=== PATIENT | male | born 1970 | race Caucasian/White ===

== ENCOUNTER 2017-12-06 14:45 | Inpatient (IN) ==
[2017-12-06] MEDS ORDERED: Ipratropium/Albuterol Neb 3 ML IH ONE (15:17)
[2017-12-06] MEDS ORDERED: methylPREDNISolone 125 MG/2 ML VIAL IVP ONE (15:17)
[2017-12-06] MEDS ORDERED: 0.9 % Sodium Chloride 1,000 ML IVC ONE (15:28)
--- NOTE | 2017-12-06 15:29 | Emergency Department Note ---
Disposition Clinical Impression: Pulmonary nodule, Hyponatremia, COPD exacerbation Pneumonia Qualifiers: Pneumonia type: due to unspecified organism Laterality: unspecified laterality Lung location: unspecified part of lung Qualified Code(s): J18.9 - Pneumonia, unspecified organism Disposition: Admitted As Inpatient Condition: Good Referrals: Malissa An CNP [Primary Care Provider] - Forms: ED Satisfaction Letter General Adult HPI - General Chief complaint: ED Shortness of Breath/Dyspnea Stated complaint: GARDENIA Time Seen by Provider: 12/06/17 15:05 Source: patient Limitations: no limitations Nursing Notes Reviewed: Yes Vital Signs Reviewed: Yes - History of Present Illness HPI Narrative: 47-year-old male who reports a past medical history of hypertension, COPD, acid reflux. He denies any cardiac history. He reports that he is normally on 2 L nasal cannula of oxygen at home. He reports approximately 1 week of worsening cough and dyspnea. He saw his primary care practitioner proximally 3 days ago who prescribed him steroids and an antibiotic and he does not report an improvement. He denies any nausea or vomiting. He does admit to fatigue. His cough is productive with yellow sputum. It is worse with exertion. He reports having numerous flares of COPD in the past and this feels like the same. Radiation: non-radiation Pain Scale: 3 Consistency: constant Improves with: nothing Worsens with: other (Exertion) Associated symptoms: Reports: denies other symptoms Treatments Prior to Arrival: none - Related Data Home Medications Medication Instructions Recorded Confirmed Albuterol Sulfate [Ventolin Hfa] 2 puff IH Q4H PRN 12/06/17 12/06/17 Cholecalciferol (D-3) [Vitamin D] 1,000 unit PO DAILY 12/06/17 12/06/17 Lisinopril [Zestril] 40 mg PO DAILY 12/06/17 12/06/17 Loratadine [Claritin] 10 mg PO DAILY 12/06/17 12/06/17 levoFLOXacin [Levofloxacin] 750 mg PO DAILY 12/06/17 12/06/17 predniSONE [PredniSONE] 40 mg PO DAILY 12/06/17 12/06/17 Previous Rx's Medication Instructions Recorded Alprazolam [Xanax] 0.5 mg PO BID PRN #20 tablet 07/30/15 Budesonide/Formoterol 160/4.5 2 puff IH BIDR 30 Days inhaler 07/30/15 [Symbicort] Allergies Allergy/AdvReac Type Severity Reaction Status Date / Time Penicillins Allergy unsure Verified 07/28/15 17:30 venom-honey bee Allergy Difficulty Verified 07/28/15 17:30 [bee venom (honey bee)] Breathing All systems ED: reviewed and negative except as stated. Constitutional: Denies: fever ENT ED: Denies: throat pain Cardiovascular: Denies: chest pain Respiratory: Reports: cough, dyspnea, wheezes Gastrointestinal: Denies: abdominal pain, nausea, vomiting Integumentary: Denies: rash Endocrine: Reports: fatigue Past Medical History - Past Medical History Medical history: Reports: asthma, COPD, hypertension, other Surgical history: Reports: appendectomy Psychiatric history: Reports: anxiety - Social History Smoking Status: Current every day smoker Smokeless Tobacco Status: Yes (chew) Alcohol use: Reports: occasionally Drug use: Reports: none Physical Exam - General Limitations: no limitations General appearance: alert - Head Head exam: atraumatic - Eye Eye exam: Present: normal appearance, PERRL - ENT ENT exam: normal exam, normal oropharynx - Neck Neck exam: Present: normal inspection - Chest Chest inspection: Present: normal inspection - Respiratory Respiratory exam: Present: other (Significant expiratory wheezes with rhonchi throughout). Absent: respiratory distress, accessory muscle use - Cardiovascular Cardiovascular exam: Present: regular rate, normal rhythm - Abdominal Exam Abdominal exam: Present: soft, Non-Tender - Extremities Exam Extremities exam: Present: normal inspection. Absent: pedal edema - Neurological Exam Neurological exam: Present: alert, oriented X3 - Psychiatric Psychiatric exam: Present: normal affect, normal mood - Skin Skin exam: Present: warm, dry Course Course Narrative: He currently is able to talk in partial sentences without accessory muscle use. We will start with triple DuoNeb therapy and steroids and reevaluate. His SPO2 was 90% on 3 L nasal cannula. He is not in respiratory failure at this point. He does drink up to 12 beers a day which explains his hyponatremia. Will CTA to rule out PE. CTA shows pneumonia. Will admit. Vital Signs Temperature 98.6 F 12/06/17 14:50 Pulse Rate 114 12/06/17 14:50 Respiratory Rate 24 12/06/17 14:50 Blood Pressure 126/76 12/06/17 14:50 O2 Sat by Pulse Oximetry 78 12/06/17 14:50 Temperature 98.6 F 12/06/17 14:50 Pulse Rate 102 12/06/17 18:36 Respiratory Rate 18 12/06/17 18:36 Blood Pressure 110/93 12/06/17 18:36 O2 Sat by Pulse Oximetry 90 12/06/17 18:36 Oxygen Delivery Oxygen Delivery Nasal Cannula Medical Decision Making - Medical Records Medical records reviewed: Yes I reviewed the patient's medical records. - Lab Data Lab results reviewed: Yes I reviewed the patient's lab results. Result diagrams: 12/06/17 15:36 12/06/17 15:36 Lab Results 12/06/17 12/06/17 12/06/17 Range/Units 15:36 15:36 15:36 WBC 6.6 (4.3-11.1) K/mcL RBC 5.08 (4.19-5.50) M/mcL Hgb 16.3 (12.9-16.9) g/dL Hct 49.5 (37.5-50.1) % MCV 97.4 (83.0-100.0) fL MCH 32.1 (28.0-33.3) pg MCHC 32.9 (31.6-35.5) g/dL RDW 13.6 (11.5-14.5) % Plt Count 224 (140-400) K/mcL MPV 10.8 (9.4-12.4) fL Immature Gran % 0.6 (0-4) % Seg Neutrophils % 62.2 % Lymphocytes % 21.5 % Monocytes % 15.2 % Eosinophils % 0.0 % Basophils % 0.5 % Neutrophils # 4.1 (1.6-8.9) K/mcL Lymphocytes # 1.4 (0.6-4.6) K/mcL Monocytes # 1.0 (0.0-1.3) K/mcL Eosinophils # 0.0 (0.0-0.6) K/mcL Basophils # 0.0 (0.0-0.2) K/mcL Reactive Lymphocytes Present A (Not Present) Smudge Cells Present A (Not Present) Sodium 128 L (136-145) mEq/L Potassium 4.6 (3.5-5.1) mEq/L Chloride 90 L (98-107) mEq/L Carbon Dioxide 33 H (23-29) mEq/L BUN 7 (6-20) mg/dL Creatinine 0.70 (0.70-1.30) mg/dL Est GFR ( Amer) > 60 (> 60) Est GFR (Non-Af Amer) > 60 (> 60) BUN/Creatinine Ratio 10 (6-26) Glucose 118 H (70-105) mg/dL Calculated Osmolality 265 L (280-300) Calcium 9.0 (8.6-10.3) mg/dL Troponin I < 0.03 (< 0.04) ng/mL B-Natriuretic Peptide (Less than 100) pg/mL 12/06/17 Range/Units 15:36 WBC (4.3-11.1) K/mcL RBC (4.19-5.50) M/mcL Hgb (12.9-16.9) g/dL Hct (37.5-50.1) % MCV (83.0-100.0) fL MCH (28.0-33.3) pg MCHC (31.6-35.5) g/dL RDW (11.5-14.5) % Plt Count (140-400) K/mcL MPV (9.4-12.4) fL Immature Gran % (0-4) % Seg Neutrophils % % Lymphocytes % % Monocytes % % Eosinophils % % Basophils % % Neutrophils # (1.6-8.9) K/mcL Lymphocytes # (0.6-4.6) K/mcL Monocytes # (0.0-1.3) K/mcL Eosinophils # (0.0-0.6) K/mcL Basophils # (0.0-0.2) K/mcL Reactive Lymphocytes (Not Present) Smudge Cells (Not Present) Sodium (136-145) mEq/L Potassium (3.5-5.1) mEq/L Chloride (98-107) mEq/L Carbon Dioxide (23-29) mEq/L BUN (6-20) mg/dL Creatinine (0.70-1.30) mg/dL Est GFR ( Amer) (> 60) Est GFR (Non-Af Amer) (> 60) BUN/Creatinine Ratio (6-26) Glucose (70-105) mg/dL Calculated Osmolality (280-300) Calcium (8.6-10.3) mg/dL Troponin I (< 0.04) ng/mL B-Natriuretic Peptide 38 (Less than 100) pg/mL - Radiology Data Radiology results reviewed: Yes I reviewed the patient's radiology results. - EKG Data EKG #1 EKG attestation: Yes I reviewed and interpreted this EKG. EKG shows normal: sinus rhythm Rhythm: NSR [place]/QRS: normal When compared to previous EKG there are: no significant changes Interpretation: nonspecific ST-T wave changes
[2017-12-06 15:47] LABS: Basophils % 0.5 %; Hematocrit 49.5 % (37.5-50.1); Hemoglobin 16.3 g/dL (12.9-16.9); Immature Granulocytes % 0.6 % (0-4); Lymphocytes # 1.4 K/mcL (0.6-4.6); Lymphocytes % 21.5 %; Mean Corpuscular HGB Conc 32.9 g/dL (31.6-35.5); Mean Corpuscular Hemoglobin 32.1 pg (28.0-33.3); Mean Corpuscular Volume 97.4 fL (83.0-100.0); Mean Platelet Volume 10.8 fL (9.4-12.4); Monocytes % 15.2 %; Neutrophils # 4.1 K/mcL (1.6-8.9); Platelet Count 224 K/mcL (140-400); Red Blood Count 5.08 M/mcL (4.19-5.50); Red Cell Distribution Width 13.6 % (11.5-14.5); Segmented Neutrophils % 62.2 %
[2017-12-06 15:58] LABS: Carbon Dioxide 33 mEq/L (23-29); Chloride 90 mEq/L (98-107); Potassium 4.6 mEq/L (3.5-5.1); Sodium 128 mEq/L (136-145)
[2017-12-06 16:03] LABS: BUN/Creatinine Ratio 10 (6-26); Blood Urea Nitrogen 7 mg/dL (6-20); Glucose 118 mg/dL (70-105); Osmolality,Calculated 265 (280-300); eGFR For African Americans > 60 (> 60); eGFR For Non-African Americans > 60 (> 60)
[2017-12-06 17:27] LABS: Reactive Lymphocytes Present (Not Present)
[2017-12-06 17:28] LABS: Smudge Cells Present (Not Present)
[2017-12-06] MEDS ORDERED: Levofloxacin 750 MG/150 ML 750 MG/150 ML BAG IVPB ONE (17:46)
[2017-12-06] MEDS ORDERED: Albuterol 2.5 MG/3 ML NEBULIZER IH ONE (18:05)
--- NOTE | 2017-12-06 18:30 | Emergency Department Note ---
START Narrative - START START: I examined this patient and my medical decision-making was reviewed with the Resident Physician. I agree with the documented findings, disposition and treatment plan as described except to the extent set forth below. 47 year old male with HX of COPD and cass acute excerbation who is tachycardiac and hypoxic. CTA chest shows pneumonia and we will admit to medicine with IV ABX and pulmonary toilet
[2017-12-06] MEDS ORDERED: Ibuprofen 400 MG TABLET PO PRN (20:12)
[2017-12-06] MEDS ORDERED: Naloxone 0.4 MG/ML INJ IVP PRN (20:12)
[2017-12-06] MEDS ORDERED: Ondansetron ODT 4 MG TAB.RAPDIS SL PRN (20:12)
[2017-12-06] MEDS ORDERED: Acetaminophen 325 MG TABLET PO PRN (20:12)
--- NOTE | 2017-12-06 20:19 | Internal Med History&Physical ---
<Elijah Griffith - Last Filed: 12/06/17 22:07> Date of Encounter: 12/06/17 Time of Encounter: 20:00 Assessment and Plan (1) COPD exacerbation Current visit: Yes Status: Acute Duonebs, O2 titration to ~92%, po steroids. (2) Pneumonia Current visit: Yes Status: Acute CT chest shows multifocal atypical pneumonitis. Has received 3 days of outpatient Levaquin and Prednisone 40mg. Will continue Levaquin (atypical coverage). Qualifiers: Pneumonia type: due to unspecified organism Laterality: unspecified laterality Lung location: unspecified part of lung Qualified Code(s): J18.9 - Pneumonia, unspecified organism (3) Hyponatremia Current visit: Yes Status: Acute Likely hypovolemic hyponatremia secondary to volume loss, diarrhea, dehydration , sweating. Past history of hyponatremia prior admission. Asymptomatic, will monitor morning labs, regular diet/po fluid intake. (4) Nodule of left lung Current visit: No Status: Acute Stable left upper lobe lung nodule, 9mm, compared to CT scan Dec 2016. (5) Tobacco abuse Current visit: Yes Status: Acute [id number] years. Nicotine replacement therapy. (6) DVT prophylaxis Current visit: Yes Status: Acute SQ Heparin 5000U q12h. Total time: ~40minutes Internal Medicine - H&P: HPI Admitted From: Emergency Dept Plans for Post Hospital Care: Home History of present illness: Mr. Melo is a 47 year old male who presents with 1 week onset of productive cough, malaise, and dyspnea. Patient has a past medical history of COPD, on 2 liters home O2, current everyday smoker 1 [id number], hypertension, asthma. Patient reports yellowish sputum, fatigue, subjective chills and sweats without nausea or vomiting. He states he started Levaquin 750mg and Prednisone 40mg 3 days ago, with onset of mild diarrhea before starting abx. CT ordered in ED shows multifocal atypical pneumonitis, negative for pulmonary embolism, stable left upper lobe 9mm lung nodule. Past Med Surg Social Fam HX - Past Medical History Medical history: asthma, COPD, hypertension, other Psychiatric history: anxiety - Past Surgical History Surgical History: appendectomy - Social History Smoking Status: Current every day smoker Smokeless Tobacco Status: Yes (chew) Alcohol use: occasionally Drug use: none - Family History Father Adopted: No Living Status: Hx Family Respiratory Disorders: Yes (Severe COPD, metastatic lung cancer) Hx Family Cancer: Yes (lung, liver, pancreatic) Mother Adopted: No Living Status: Hx Family Respiratory Disorders: Yes (COPD, unknown cancer) Hx Family Cancer: Yes (Lung) Internal Medicine - H&P: Meds Alprazolam [Xanax] 0.5 mg PO BID PRN #20 tablet 07/30/15 [Rx] Budesonide/Formoterol 160/4.5 [Symbicort] 2 puff IH BIDR 30 Days inhaler [Rx] Albuterol Sulfate [Ventolin Hfa] 2 puff IH Q4H PRN 12/06/17 [History] Cholecalciferol (D-3) [Vitamin D] 1,000 unit PO DAILY 12/06/17 [History] Lisinopril [Zestril] 40 mg PO DAILY 12/06/17 [History] Loratadine [Claritin] 10 mg PO DAILY 12/06/17 [History] levoFLOXacin [Levofloxacin] 750 mg PO DAILY 12/06/17 [History] predniSONE [PredniSONE] 40 mg PO DAILY 12/06/17 [History] 3 Allergy/AdvReac Type Severity Reaction Status Date / Time Penicillins Allergy unsure Verified 07/28/15 17:30 venom-honey bee Allergy Difficulty Verified 07/28/15 17:30 [bee venom (honey bee)] Breathing All Systems PM: A 10-system review of systems was performed and is negative for pertinent findings except as documented above in the HPI. - Constitutional Vitals: Temp Pulse Resp BP Pulse Ox 98.6 F 102 18 110/93 90 12/06/17 14:50 12/06/17 18:36 12/06/17 18:36 12/06/17 18:36 12/06/17 18:36 General appearance: Present: A&O X 3, no acute distress - Head Head exam: Present: atraumatic - ENT ENT exam: Present: mucous membranes moist - Neck Neck exam general surgery: Present: full ROM - Respiratory Respiratory exam: Present: rhonchi, wheezes (bilateral). Absent: accessory muscle use, respiratory distress - Cardiovascular Cardiovascular exam: Present: +S1, +S2, tachycardia. Absent: irregular rhythm, +S3, +S4 - Extremities Exam Extremities exam: Present: normal capillary refill. Absent: calf tenderness, cyanotic - Psychiatric Psychiatric exam: Present: normal affect - Skin Skin exam: Absent: diaphoretic Internal Med - H&P Results - Labs CBC & Chem 7: 12/06/17 15:36 12/06/17 15:36 Labs: Short CBC 12/06/17 Range/Units 15:36 WBC 6.6 (4.3-11.1) K/mcL Hgb 16.3 (12.9-16.9) g/dL Hct 49.5 (37.5-50.1) % Plt Count 224 (140-400) K/mcL Neutrophils # 4.1 (1.6-8.9) K/mcL BMP 12/06/17 15:36 Sodium 128 L Potassium 4.6 Chloride 90 L Carbon Dioxide 33 H BUN 7 Creatinine 0.70 Glucose 118 H Calcium 9.0 Cardiac Enzymes 12/06/17 Range/Units 15:36 Troponin I < 0.03 (< 0.04) ng/mL - Impressions ITS Impressions Chest X-Ray 12/06/17 15:17 IMPRESSION: 1. Mild vascular congestion. D/ / Danny Ventura MD / Danny Ventura MD Interpreting Provider: Danny Ventura MD Chest CTA 12/06/17 16:35 IMPRESSION: 1. No evidence of acute pulmonary embolism. 2. Bilateral tree-in-bud and ground-glass opacities consistent with multifocal atypical pneumonitis, likely infectious. 3. Enlarged mediastinal and hilar lymph nodes bilaterally. These are nonspecific, may be reactive; however, underlying neoplasm is not excluded. Attention on subsequent imaging is recommended. 4. An 8 mm noncalcified left upper lobe lung nodule. Follow-up imaging and management per criteria listed below is recommended. 5. Emphysema. RECOMMENDATIONS: Fleischner Society guidelines for follow-up and management of incidentally detected pulmonary nodules: Single Solid Nodule: Nodule size equals 6-8 mm In a low-risk patient, CT at 6-12 months, then consider CT at 18-24 months. In a high-risk patient, CT at 6-12 months, then CT at 18-24 months. - Low risk patients include individuals with minimal or absent history of smoking and other known risk factors. - High risk patients include individuals with a history or smoking or known risk factors. Radiology 2017 http://pubs.rsna.org/doi/full/10.1148/radiol.3393673668 D/ / 12/06/2017 17:34:31 Jeffery Beltran MD / judith Interpreting Provider: Jeffery Beltran MD <Angle Silva - Last Filed: 12/07/17 04:09> Date of Encounter: 12/07/17 Internal Medicine - H&P: HPI History of present illness: Mr. Melo is a 47 year old male All Systems PM: A 10-system review of systems was performed and is negative for pertinent findings except as documented above in the HPI. - Constitutional Vitals: Temp Pulse Resp BP Pulse Ox 98.1 F 61 16 107/72 94 12/07/17 01:12 12/07/17 01:12 12/07/17 01:12 12/07/17 01:12 12/07/17 01:12 Internal Med - H&P Results - Labs CBC & Chem 7: 12/06/17 15:36 12/06/17 15:36 - Attending Attestation I have seen and examined this pt independently. I have discussed with Resident physician Dr Griffith regarding the management plan. Agree with the documentation.
[2017-12-06] MEDS ORDERED: Ipratropium/Albuterol Neb 3 ML IH PRN (20:38)
[2017-12-06] MEDS: *HR* Heparin 5,000 UNIT/ML VIAL SQ SCH (21:55)
[2017-12-06] MEDS: Nicotine 14 MG PATCH.TD24 TD SCH (21:56)
[2017-12-06] MEDS: ALPRAZolam 0.5 MG TABLET PO PRN (21:56)
[2017-12-06] MEDS: Lisinopril 20 MG TABLET PO SCH (21:58)
[2017-12-06] MEDS: predniSONE 20 MG TABLET PO SCH (22:47)
[2017-12-07] MEDS: *HR* Heparin 5,000 UNIT/ML VIAL SQ SCH ×2 (05:32→17:19)
[2017-12-07 06:23] LABS: BUN/Creatinine Ratio 16 (6-26); Blood Urea Nitrogen 10 mg/dL (6-20); Calcium 8.6 mg/dL (8.6-10.3); Carbon Dioxide 37 mEq/L (23-29); Chloride 95 mEq/L (98-107); Glucose 139 mg/dL (70-105); Osmolality,Calculated 273 (280-300); Potassium 4.1 mEq/L (3.5-5.1); Sodium 131 mEq/L (136-145); eGFR For African Americans > 60 (> 60); eGFR For Non-African Americans > 60 (> 60)
[2017-12-07 06:31] LABS: Basophils % 0.9 %; Hematocrit 48.4 % (37.5-50.1); Hemoglobin 15.5 g/dL (12.9-16.9); Immature Granulocytes % 1.1 % (0-4); Lymphocytes # 1.7 K/mcL (0.6-4.6); Lymphocytes % 37.7 %; Mean Corpuscular Hemoglobin 31.8 pg (28.0-33.3); Mean Corpuscular Volume 99.2 fL (83.0-100.0); Monocytes # 0.6 K/mcL (0.0-1.3); Monocytes % 13.4 %; Neutrophils # 2.1 K/mcL (1.6-8.9); Platelet Count 202 K/mcL (140-400); Red Blood Count 4.88 M/mcL (4.19-5.50); Red Cell Distribution Width 13.6 % (11.5-14.5); Segmented Neutrophils % 46.9 %
[2017-12-07 07:59] LABS: Platelet Estimate Normal (Normal)
[2017-12-07] MEDS ORDERED: levoFLOXacin 750 MG TABLET PO SCH (09:00)
[2017-12-07] MEDS: Nicotine 14 MG PATCH.TD24 TD SCH (09:29)
[2017-12-07] MEDS: Lisinopril 20 MG TABLET PO SCH (09:29)
[2017-12-07] MEDS: predniSONE 20 MG TABLET PO SCH (09:29)
[2017-12-07] MEDS ORDERED: Ipratropium/Albuterol Neb 3 ML IH SCH (10:00)
[2017-12-07] MEDS: ALPRAZolam 0.5 MG TABLET PO PRN (11:52)
[2017-12-07] MEDS ORDERED: *HR* LORazepam 0.5 MG TABLET PO PRN (15:45)
[2017-12-07] MEDS ORDERED: Ipratropium/Albuterol Neb 3 ML IH PRN (15:48)
--- NOTE | 2017-12-07 15:48 | Internal Med Progress Note ---
Date of Encounter: 12/07/17 Time of Encounter: 15:44 - Assessment and plan (1) Acute on chronic respiratory failure with hypoxia Current Visit: Yes Status: Acute Assessment and plan: He still has diffuse wheezing will start him on IV steroids switched to IV Abx will check Resp viral Panel cont Duoneb Q4hr YON pt does need to stay in the hospital more than 2 nights due to his complex medical problem. High risk to develop resp failure. Will switch him to full admission. I reviewed my colleague Dr. Silva's H & P including HPI, PMH, PSH, FH,and ROS no changes noticed (2) Nodule of left lung Current Visit: No Status: Acute Assessment and plan: counseled to quit smoking need to f/u as an out pt (3) Alcohol abuse Current Visit: No Status: Chronic Assessment and plan: counseled to quit drinking last alcohol on Wednesday monitor closely for withdraw symptoms on Ativan PRN (4) Pneumonia Current Visit: Yes Status: Acute Assessment and plan: mostly bacterial Qualifiers: Pneumonia type: due to unspecified organism Laterality: unspecified laterality Lung location: unspecified part of lung Qualified Code(s): J18.9 - Pneumonia, unspecified organism (5) COPD exacerbation Current Visit: Yes Status: Acute (6) Tobacco abuse Current Visit: Yes Status: Acute (7) DVT prophylaxis Current Visit: Yes Status: Acute - Subjective Interval history: Mr. Melo is a 47 year old male who presents with 1 week onset of productive cough, malaise, and dyspnea. Patient has a past medical history of COPD, on 2 liters home O2, current everyday smoker 1 [id number], hypertension, asthma. Patient reports yellowish sputum, fatigue, subjective chills and sweats without nausea or vomiting. He states he started Levaquin 750mg and Prednisone 40mg 3 days ago, with onset of mild diarrhea before starting abx. CT ordered in ED shows multifocal atypical pneumonitis, negative for pulmonary embolism, stable left upper lobe 9mm lung nodule. Pt stated he is feeling little better today. however still on3 lit O2.. Still has moderate SOB and NORIEGA - Constitutional Vitals: Temp Pulse Resp BP Pulse Ox 98.1 F 86 16 117/83 91 12/07/17 11:42 12/07/17 11:42 12/07/17 11:42 12/07/17 11:42 12/07/17 11:42 General appearance: Present: mild distress, A&O X 3 - Head Head exam: Present: atraumatic, normal inspection - Neck Neck exam general surgery: Present: supple - Respiratory Respiratory exam: Present: decreased breath sounds, respiratory distress (mild) , wheezes (diffuse wheezing). Absent: rales, rhonchi, stridor - Cardiovascular Cardiovascular exam: Present: RRR, +S1, +S2. Absent: systolic murmur, tachycardia - GI/Abdominal GI/Abdominal exam: Present: normal bowel sounds, soft. Absent: rebound, rigid, tenderness - Extremities Exam Extremities exam: Absent: calf tenderness, pedal edema, tenderness - Back Exam Back exam: Absent: CVA tenderness (L), CVA tenderness (R) - Neurological Exam Neurological exam: Present: alert, oriented X3 - Psychiatric Psychiatric exam: Present: normal affect, normal mood Internal Medicine: Result - Labs CBC & Chem 7: 12/07/17 05:33 12/07/17 05:33 Labs: Short CBC 12/07/17 Range/Units 05:33 WBC 4.4 (4.3-11.1) K/mcL Hgb 15.5 (12.9-16.9) g/dL Hct 48.4 (37.5-50.1) % Plt Count 202 (140-400) K/mcL Neutrophils # 2.1 (1.6-8.9) K/mcL BMP 12/07/17 05:33 Sodium 131 L Potassium 4.1 Chloride 95 L Carbon Dioxide 37 H BUN 10 Creatinine 0.64 L Glucose 139 H Calcium 8.6 Consult Discharge Plan - Plan Referrals: Malissa An CNP [Primary Care Provider] - 12/14/17 9:30 am
[2017-12-07] MEDS: Ipratropium/Albuterol Neb 3 ML IH SCH ×2 (16:50→19:56)
[2017-12-07] MEDS: *HR* HYDROcodone/Acet 7.5/325 mg TABLET PO PRN (17:18)
[2017-12-07] MEDS: MethylPREDNISolone 40 MG/ML VIAL IVP SCH ×2 (17:19→17:25)
--- NOTE | 2017-12-07 20:18 | Electrocardiograph Report ---
[address] [place] [address] Test Date: 2017-12-06 Pat Name: Eleazar Melo Department: 103 Room: 2N09 Gender: M [employer]: LAI : [id number] Requested By: Andrade Ornelas Order Number: [id number] Reading MD: Shannan Han Measurements Intervals [place] Rate: 101 P: 84 CT: 142 QRS: 95 QRSD: 95 T: 84 QT: 323 QTc: 381 Interpretive Statements SINUS TACHYCARDIA POSSIBLE RIGHT ATRIAL ENLARGEMENT [0.25mV P WAVE] POSSIBLE LEFT ATRIAL ENLARGEMENT [-0.1mV P WAVE IN V1/V2] BORDERLINE RIGHT AXIS DEVIATION [QRS AXIS > 90] SEPTAL MYOCARDIAL INFARCTION [40+ ms Q WAVE IN V1/V2], OF INDETERMINATE AGE Electronically Signed On 12-07-2017 20:16:29 EST by Shannan Han
[2017-12-07 20:26] LABS: Adenovirus Not Detected (Not Detect); Bordetella Pertussis Not Detected (Not Detect); Chlamydophila pneumoniae Not Detected (Not Detect); Coronavirus 229E Not Detected (Not Detect); Coronavirus HKU1 Not Detected (Not Detect); Coronavirus NL63 Not Detected (Not Detect); Coronavirus OC43 Not Detected (Not Detect); Human Metapneumovirus Not Detected (Not Detect); Human Rhinovirus/Enterovirus Not Detected (Not Detect); Influenza A Subtype 2009 H1 Not Detected (Not Detect); Influenza A Untypeable Not Detected (Not Detect); Influenza B Not Detected (Not Detect); Mycoplasma pneumoniae Not Detected (Not Detect); Parainfluenza Virus 1 Not Detected (Not Detect); Parainfluenza Virus 2 Not Detected (Not Detect); Parainfluenza Virus 3 Not Detected (Not Detect); Parainfluenza Virus 4 Not Detected (Not Detect); Respiratory Syncytial Virus Not Detected (Not Detect)
[2017-12-08] MEDS: Ipratropium/Albuterol Neb 3 ML IH SCH ×6 (00:06→20:56)
[2017-12-08] MEDS: MethylPREDNISolone 40 MG/ML VIAL IVP SCH ×4 (05:00→17:32)
[2017-12-08] MEDS: *HR* Heparin 5,000 UNIT/ML VIAL SQ SCH ×2 (05:00→17:32)
[2017-12-08 08:26] LABS: Basophils # 0.1 K/mcL (0.0-0.2); Basophils % 0.9 %; Hemoglobin 15.7 g/dL (12.9-16.9); Immature Granulocytes % 0.5 % (0-4); Lymphocytes # 2.1 K/mcL (0.6-4.6); Lymphocytes % 27.5 %; Mean Corpuscular Hemoglobin 31.7 pg (28.0-33.3); Mean Corpuscular Volume 98.8 fL (83.0-100.0); Mean Platelet Volume 11.2 fL (9.4-12.4); Monocytes # 0.5 K/mcL (0.0-1.3); Monocytes % 6.1 %; Platelet Count 213 K/mcL (140-400); Red Blood Count 4.96 M/mcL (4.19-5.50); Red Cell Distribution Width 13.4 % (11.5-14.5)
[2017-12-08 09:20] LABS: Platelet Estimate Normal (Normal)
[2017-12-08] MEDS: Lisinopril 20 MG TABLET PO SCH (09:34)
[2017-12-08] MEDS: *HR* HYDROcodone/Acet 7.5/325 mg TABLET PO PRN ×3 (09:34→14:59)
[2017-12-08] MEDS: Levofloxacin 750 MG/150 ML 750 MG/150 ML BAG IVPB SCH (09:34)
[2017-12-08] MEDS: Cholecalciferol (D-3) 1,000 UNIT TABLET PO SCH (09:34)
[2017-12-08] MEDS: Nicotine 14 MG PATCH.TD24 TD SCH (09:34)
--- NOTE | 2017-12-08 14:35 | Internal Med Progress Note ---
Date of Encounter: 12/08/17 Time of Encounter: 13:20 - Assessment and plan (1) Acute on chronic respiratory failure with hypoxia Current Visit: Yes Status: Acute Assessment and plan: Improving started tapering IV steroids Cont empirical IV Abx Levaquin Resp viral Panel - completely negative cont Duoneb Q4hr YON Medically stable to move to regular tele floor (2) Nodule of left lung Current Visit: No Status: Acute Assessment and plan: counseled to quit smoking need to f/u as an out pt (3) Alcohol abuse Current Visit: No Status: Chronic Assessment and plan: counseled to quit drinking last alcohol on Wednesday monitor closely for withdraw symptoms on Ativan PRN (4) Pneumonia Current Visit: Yes Status: Acute Assessment and plan: mostly bacterial Qualifiers: Pneumonia type: due to unspecified organism Laterality: unspecified laterality Lung location: unspecified part of lung Qualified Code(s): J18.9 - Pneumonia, unspecified organism (5) COPD exacerbation Current Visit: Yes Status: Acute (6) Tobacco abuse Current Visit: Yes Status: Acute (7) DVT prophylaxis Current Visit: Yes Status: Acute - Subjective Interval history: Mr. Melo is a 47 year old male who presents with 1 week onset of productive cough, malaise, and dyspnea. Patient has a past medical history of COPD, on 2 liters home O2, current everyday smoker 1 [id number], hypertension, asthma. Patient reports yellowish sputum, fatigue, subjective chills and sweats without nausea or vomiting. He states he started Levaquin 750mg and Prednisone 40mg 3 days ago, with onset of mild diarrhea before starting abx. CT ordered in ED shows multifocal atypical pneumonitis, negative for pulmonary embolism, stable left upper lobe 9mm lung nodule. Pt stated he is feeling lot better today. however still on 3 lit O2.. Still has mild SOB and NORIEGA. Denied any CP - Constitutional Vitals: Temp Pulse Resp BP Pulse Ox 98.1 F 90 18 140/95 96 12/08/17 12:06 12/08/17 12:06 12/08/17 12:06 12/08/17 12:06 12/08/17 12:06 General appearance: Present: A&O X 3, no acute distress, answers questions appropriately - Head Head exam: Present: atraumatic, normal inspection - Neck Neck exam general surgery: Present: supple - Respiratory Respiratory exam: Present: decreased breath sounds, wheezes (moderate). Absent : rales, respiratory distress, rhonchi - Cardiovascular Cardiovascular exam: Present: RRR, +S1, +S2. Absent: tachycardia - GI/Abdominal GI/Abdominal exam: Present: normal bowel sounds, soft. Absent: rebound, rigid, tenderness - Extremities Exam Extremities exam: Absent: calf tenderness, pedal edema, tenderness - Back Exam Back exam: Absent: CVA tenderness (L), CVA tenderness (R) - Psychiatric Psychiatric exam: Present: normal affect, normal mood Internal Medicine: Result - Labs CBC & Chem 7: 12/08/17 07:16 12/07/17 05:33 Labs: Short CBC 12/08/17 Range/Units 07:16 WBC 7.7 D (4.3-11.1) K/mcL Hgb 15.7 (12.9-16.9) g/dL Hct 49.0 (37.5-50.1) % Plt Count 213 (140-400) K/mcL Neutrophils # 5.0 (1.6-8.9) K/mcL Consult Discharge Plan - Plan Referrals: Malissa An, [employer]EL[employer] [Primary Care Provider] - 12/14/17 9:30 am
[2017-12-09] MEDS: *HR* HYDROcodone/Acet 7.5/325 mg TABLET PO PRN ×2 (00:11→08:28)
[2017-12-09] MEDS: Ipratropium/Albuterol Neb 3 ML IH SCH ×3 (00:21→07:54)
[2017-12-09] MEDS: *HR* Heparin 5,000 UNIT/ML VIAL SQ SCH (06:43)
[2017-12-09] MEDS: MethylPREDNISolone 40 MG/ML VIAL IVP SCH (06:43)
[2017-12-09 07:29] VITALS: BP 142/107
[2017-12-09] MEDS: Lisinopril 20 MG TABLET PO SCH (08:18)
[2017-12-09] MEDS: Cholecalciferol (D-3) 1,000 UNIT TABLET PO SCH (08:18)
[2017-12-09] MEDS: Nicotine 14 MG PATCH.TD24 TD SCH (08:18)
[2017-12-09] MEDS: Levofloxacin 750 MG/150 ML 750 MG/150 ML BAG IVPB SCH (08:19)
--- NOTE | 2017-12-09 08:38 | Discharge Summary ---
Date of Encounter: 12/09/17 Time of Encounter: 08:36 - Discharge Diagnosis (1) Acute on chronic respiratory failure with hypoxia Priority: Primary Status: Acute (2) Nodule of left lung Priority: Primary Status: Acute (3) Pneumonia Priority: Primary Status: Acute Qualifiers: Pneumonia type: due to unspecified organism Laterality: unspecified laterality Lung location: unspecified part of lung Qualified Code(s): J18.9 - Pneumonia, unspecified organism (4) Alcohol abuse Priority: Secondary Status: Chronic (5) COPD exacerbation Priority: Primary Status: Acute (6) Tobacco abuse Priority: Secondary Status: Acute (7) DVT prophylaxis Priority: Secondary Status: Acute - Discharge Medications Prescriptions: HYDROcodone/Acet 7.5/325 mg [[place] 7.5-325 mg] 1 tab PO TID PRN #10 tablet PRN Reason: Pain levoFLOXacin [Levofloxacin] 750 mg PO DAILY #4 tablet Nicotine Patch [Nicoderm] 14 mg TD DAILY #30 patch.td24 predniSONE [PredniSONE] 40 mg PO BID #18 tablet Home Medications: Alprazolam [Xanax] 0.5 mg PO BID PRN #20 tablet 07/30/15 [Rx] Budesonide/Formoterol 160/4.5 [Symbicort] 2 puff IH BIDR 30 Days inhaler [Rx] Albuterol Sulfate [Ventolin Hfa] 2 puff IH Q4H PRN 12/06/17 [History] Cholecalciferol (D-3) [Vitamin D] 1,000 unit PO DAILY 12/06/17 [History] Lisinopril [Zestril] 40 mg PO DAILY 12/06/17 [History] Loratadine [Claritin] 10 mg PO DAILY 12/06/17 [History] HYDROcodone/Acet 7.5/325 mg [[place] 7.5-325 mg] 1 tab PO TID PRN #10 tablet 12/09 [Rx] Nicotine Patch [Nicoderm] 14 mg TD DAILY #30 patch.td24 12/09/17 [Rx] levoFLOXacin [Levofloxacin] 750 mg PO DAILY #4 tablet 12/09/17 [Rx] predniSONE [PredniSONE] 40 mg PO BID #18 tablet 12/09/17 [Rx] Allergies/Adverse Reactions: 3 Allergy/AdvReac Type Severity Reaction Status Date / Time Penicillins Allergy unsure Verified 07/28/15 17:30 venom-honey bee Allergy Difficulty Verified 07/28/15 17:30 [bee venom (honey bee)] Breathing Date of admission: 12/07/17 15:46 Primary care physician: Malissa An CNP - Patient Status Disposition: Home, Self-Care Condition: Good Overall status at discharge: patient is back to baseline - Discharge Instructions Follow Up With: Malissa An CNP [Primary Care Provider] - 12/14/17 9:30 am - Diet and Activity Activity: increase activity as tolerated, wear oxygen at all times Diet: low salt diet Hospital course: Mr. Melo is a 47 year old male who presents with 1 week onset of productive cough, malaise, and dyspnea. Patient has a past medical history of COPD, on 2 liters home O2, current everyday smoker 1 [id number], hypertension, asthma. Patient reports yellowish sputum, fatigue, subjective chills and sweats without nausea or vomiting. He states he started Levaquin 750mg and Prednisone 40mg 3 days ago, with onset of mild diarrhea before starting abx. CT ordered in ED shows multifocal atypical pneumonitis, negative for pulmonary embolism, stable left upper lobe 9mm lung nodule. Pt was admitted in the hospital and started him on empirical abx Levaquin and high dose IV steroids. His symptoms started improving slowly. Counseled to quit smoking. His Resp viral panel came back as negative. He stated he is back to baseline today. So will d/c him home in stable condition today. Counseled to quit smoking tobacco and drinking alcohol. He does have Left upper lobe lung nodule, recommend to f/u with PCP for f/u CT of Chest in 3-4 months - Time Spent with Patient Total time spent providing and/or coordinating discharge services: - Constitutional Vitals: Temp Pulse Resp BP Pulse Ox 98.1 F 82 16 142/107 98 12/09/17 07:23 12/09/17 08:30 12/09/17 07:55 12/09/17 07:23 12/09/17 07:55 General appearance: Present: A&O X 3, no acute distress, answers questions appropriately - Head Head exam: Present: atraumatic, normal inspection - Neck Neck exam general surgery: Present: supple - Respiratory Respiratory exam: Present: decreased breath sounds, wheezes (moderate). Absent : rales, respiratory distress, rhonchi - Cardiovascular Cardiovascular exam: Present: RRR, +S1, +S2. Absent: tachycardia - GI/Abdominal GI/Abdominal exam: Present: normal bowel sounds, soft. Absent: rebound, rigid, tenderness - Extremities Exam Extremities exam: Absent: calf tenderness, pedal edema, tenderness - Back Exam Back exam: Absent: CVA tenderness (L), CVA tenderness (R) - Neurological Exam Neurological exam: Present: alert, oriented X3 - Psychiatric Psychiatric exam: Present: normal affect, normal mood
== END 2017-12-09 10:41 | disposition home or self-care (01) | DRG 140 ==
LOC: EMEROO 14:45 → 2NNU 14:45 → SUATTDRO 12-07 15:46
PROVIDERS: ADMIT Hospitalist; ATTEND Family Medicine

== ENCOUNTER 2019-12-14 13:05 | Inpatient (IN) ==
[~2019-12-14 13:05] MED LIST: *HR* Propofol 200 MG/20 ML VIAL IVP ONE
[2019-12-14] MEDS ORDERED: Tirofiban 12.5 MG/250ML 0 MG/0 ML BAG ONE (13:18)
[2019-12-14] MEDS ORDERED: *HR* Ticagrelor 90 MG TABLET ONE (13:30)
[2019-12-14] MEDS ORDERED: *HR* FentaNYL (PF) 100 MCG/2 ML VIAL ONE (14:27)
[2019-12-14] MEDS ORDERED: *HR* Midazolam HCl 2 MG/2 ML VIAL ONE ×6 (14:27→15:11)
[2019-12-14] MEDS ORDERED: Propofol 500 MG/50 ML INFUS..BTL ONE (14:38)
[2019-12-14] MEDS ORDERED: 0.9 % Sodium Chloride 1,000 ML ONE (14:48)
[2019-12-14 15:15] LABS: ABG Base Excess -3 mEq/L (-2 to 3); ABG HCO3 29 mEq/L (21-27); ABG Oxygen Saturation 100 % (95-98); ABG PCO2 88 mmHg (35-45); ABG PH 7.13 pH Units (7.32-7.45); ABG PO2 397 mmHg (85-104); ABG TCO2 32 mEq/L (20-26); Blood Gas Modality ASSIST CONTROL
[2019-12-14] MEDS ORDERED: Isovue-370 500 ML BOTTLE IVP ONE (15:25)
[2019-12-14] MEDS ORDERED: Naloxone 0.4 MG/ML INJ IVP PRN (15:34)
[2019-12-14] MEDS ORDERED: methylPREDNISolone 125 MG/2 ML VIAL IVP ONE (15:58)
[2019-12-14] MEDS ORDERED: Artificial Tears SOLN 15 ML BOTTLE BOTH EYES PRN (16:05)
[2019-12-14 16:42] LABS: Basophils % 0.4 %; Hematocrit 42.1 % (37.5-50.1); Lymphocytes # 0.5 K/mcL (0.6-4.6); Lymphocytes % 5.9 %; Mean Corpuscular HGB Conc 33.3 g/dL (31.6-35.5); Mean Corpuscular Hemoglobin 34.3 pg (28.0-33.3); Mean Corpuscular Volume 103.2 fL (83.0-100.0); Mean Platelet Volume 11.1 fL (9.4-12.4); Monocytes # 0.4 K/mcL (0.0-1.3); Monocytes % 5.6 %; Neutrophils # 6.7 K/mcL (1.6-8.9); Platelet Count 215 K/mcL (140-400); Red Blood Count 4.08 M/mcL (4.19-5.50); Red Cell Distribution Width 12.9 % (11.5-14.5); Segmented Neutrophils % 87.1 %; White Blood Count 7.7 K/mcL (4.3-11.1)
[2019-12-14 16:52] LABS: Amphetamine Screen,Urine Negative ng/mL (Cutoff=1000); Barbiturate Screen,Urine Positive ng/mL (Cutoff=200); Benzodiazepines Screen,Urine Positive ng/mL (Cutoff=200); Cannabinoid Screen,Urine Negative ng/mL (Cutoff = 50); Cocaine Screen,Urine Negative ng/mL (Cutoff= 300); Opiate Screen,Urine Negative ng/mL (Cutoff=300); Phencyclidine Screen,Urine Negative ng/mL (Cutoff=25)
[2019-12-14] MEDS ORDERED: levoFLOXacin 750 MG/150 ML 750 MG/150 ML BAG IVPB SCH (17:00)
[2019-12-14 17:02] LABS: Alanine Aminotransferase 6 Units/L (7-52); Albumin 3.5 g/dL (3.5-5.7); Albumin/Globulin Ratio 1.1 (1.1-2.2); Alkaline Phosphatase 68 Units/L (34-104); Aspartate Amino Transferase 11 Units/L (13-39); BUN/Creatinine Ratio 12 (6-26); Bilirubin,Total 0.3 mg/dL (0.3-1.0); Blood Urea Nitrogen 8 mg/dL (6-20); Carbon Dioxide 28 mEq/L (23-29); Chloride 92 mEq/L (98-107); Ethanol < 10 mg/dL (Less than 10); Globulin 3.2 g/dL (2.4-3.5); Glucose 120 mg/dL (70-105); Magnesium 1.6 mg/dL (1.6-2.6); Osmolality,Calculated 264 (280-300); Potassium 4.3 mEq/L (3.5-5.1); Sodium 127 mEq/L (136-145); Total Protein 6.7 g/dL (6.4-8.9); eGFR For African Americans > 60 (> 60); eGFR For Non-African Americans > 60 (> 60)
[2019-12-14] MEDS: Ipratropium/Albuterol Neb 3 ML IH SCH ×4 (17:07→20:38)
[2019-12-14 17:10] LABS: Reactive Lymphocytes Present (Not Present)
[2019-12-14] MEDS: *HR* Heparin 5,000 UNIT/ML VIAL SQ SCH ×2 (17:51→22:17)
[2019-12-14] MEDS: 0.9 % Sodium Chloride 1,000 ML IVC SCH (17:51)
[2019-12-14] MEDS ORDERED: methylPREDNISolone 125 MG/2 ML VIAL IVP SCH (18:00)
[2019-12-14 18:58] LABS: BUN/Creatinine Ratio 14 (6-26); Blood Urea Nitrogen 8 mg/dL (6-20); Calcium 8.7 mg/dL (8.6-10.3); Carbon Dioxide 26 mEq/L (23-29); Chloride 93 mEq/L (98-107); Glucose 119 mg/dL (70-105); Osmolality,Calculated 265 (280-300); Potassium 4.4 mEq/L (3.5-5.1); Sodium 128 mEq/L (136-145); eGFR For African Americans > 60 (> 60); eGFR For Non-African Americans > 60 (> 60)
[2019-12-14] MEDS: Azithromycin 500 MG in 0.9 % Sodium Chloride 250 ML IVPB SCH (19:01)
[2019-12-14] MEDS: Cefepime HCl 2,000 MG in 0.9 % Sodium Chloride Mini Bag 100 ML IVPB SCH ×2 (19:02→23:58)
[2019-12-14] MEDS ORDERED: Ipratropium/Albuterol Neb 3 ML IH SCH (20:00)
[2019-12-14] MEDS: Thiamine (B-1) 100 MG, Folic Acid 1 MG, MVI, adult with vitamin K 10 ML in 0.9 % Sodi... IVPB SCH (20:37)
[2019-12-14] MEDS: Chlorhexidine Rinse 15 ML MOUTHWASH MM SCH (20:37)
[2019-12-14] MEDS: Artificial Tears SOLN 15 ML BOTTLE BOTH EYES SCH ×2 (20:37→23:56)
[2019-12-14] MEDS: Budesonide/Formoterol 160/4.5 1 PUFF INH IH SCH (20:38)
[2019-12-14 20:52] LABS: Adenovirus Not Detected (Not Detect); Bordetella Pertussis Not Detected (Not Detect); Chlamydophila pneumoniae Not Detected (Not Detect); Coronavirus 229E Not Detected (Not Detect); Coronavirus HKU1 Not Detected (Not Detect); Coronavirus NL63 Not Detected (Not Detect); Coronavirus OC43 Not Detected (Not Detect); Human Metapneumovirus Not Detected (Not Detect); Human Rhinovirus/Enterovirus Not Detected (Not Detect); Influenza A Subtype 2009 H1 Not Detected (Not Detect); Influenza B Not Detected (Not Detect); Mycoplasma pneumoniae Not Detected (Not Detect); Parainfluenza Virus 1 Not Detected (Not Detect); Parainfluenza Virus 2 Not Detected (Not Detect); Parainfluenza Virus 3 Not Detected (Not Detect); Parainfluenza Virus 4 Not Detected (Not Detect); Respiratory Syncytial Virus Not Detected (Not Detect)
[2019-12-14 21:44] LABS: BUN/Creatinine Ratio 13 (6-26); Blood Urea Nitrogen 6 mg/dL (6-20); Calcium 8.2 mg/dL (8.6-10.3); Carbon Dioxide 24 mEq/L (23-29); Chloride 98 mEq/L (98-107); Glucose 130 mg/dL (70-105); Osmolality,Calculated 269 (280-300); Potassium 4.5 mEq/L (3.5-5.1); Sodium 130 mEq/L (136-145); eGFR For African Americans > 60 (> 60); eGFR For Non-African Americans > 60 (> 60)
[2019-12-14 21:54] LABS: ABG Base Excess -1 mEq/L (-2 to 3); ABG HCO3 26 mEq/L (21-27); ABG Oxygen Saturation 86 % (95-98); ABG PCO2 55 mmHg (35-45); ABG PH 7.29 pH Units (7.32-7.45); ABG PO2 59 mmHg (85-104); ABG TCO2 28 mEq/L (20-26); Blood Gas Modality AF; Blood Gas VT 500 cc
[2019-12-15] MEDS: Ipratropium/Albuterol Neb 3 ML IH SCH ×7 (00:26→23:16)
[2019-12-15] MEDS ORDERED: Ipratropium/Albuterol Neb 3 ML IH PRN (02:00)
[2019-12-15] MEDS: 0.9 % Sodium Chloride 1,000 ML IVC SCH (02:58)
[2019-12-15] MEDS: Artificial Tears SOLN 15 ML BOTTLE BOTH EYES SCH ×5 (04:00→20:20)
[2019-12-15 05:09] LABS: BUN/Creatinine Ratio 14 (6-26); Blood Urea Nitrogen 5 mg/dL (6-20); Calcium 8.1 mg/dL (8.6-10.3); Carbon Dioxide 22 mEq/L (23-29); Chloride 103 mEq/L (98-107); Glucose 79 mg/dL (70-105); Osmolality,Calculated 268 (280-300); Potassium 4.2 mEq/L (3.5-5.1); Sodium 131 mEq/L (136-145); eGFR For African Americans > 60 (> 60); eGFR For Non-African Americans > 60 (> 60)
[2019-12-15 05:13] LABS: ABG Base Excess -2 mEq/L (-2 to 3); ABG HCO3 26 mEq/L (21-27); ABG Oxygen Saturation 91 % (95-98); ABG PCO2 60 mmHg (35-45); ABG PH 7.25 pH Units (7.32-7.45); ABG PO2 71 mmHg (85-104); ABG TCO2 28 mEq/L (20-26); Blood Gas Modality AF; Blood Gas VT 500 cc
[2019-12-15] MEDS: *HR* Heparin 5,000 UNIT/ML VIAL SQ SCH ×4 (05:33→22:22)
[2019-12-15] MEDS ORDERED: MethylPREDNISolone 40 MG/ML VIAL IVP SCH (06:00)
[2019-12-15] MEDS: Budesonide/Formoterol 160/4.5 1 PUFF INH IH SCH ×2 (07:43→19:20)
[2019-12-15] MEDS: Dexamethasone 4 MG/ML VIAL IVP SCH ×3 (08:49→23:22)
[2019-12-15] MEDS: Cefepime HCl 2,000 MG in 0.9 % Sodium Chloride Mini Bag 100 ML IVPB SCH ×3 (08:50→23:22)
[2019-12-15] MEDS: Chlorhexidine Rinse 15 ML MOUTHWASH MM SCH ×2 (08:50→21:11)
[2019-12-15] MEDS: Pantoprazole 40 MG VIAL IVP SCH (08:50)
[2019-12-15] MEDS: Dexmedetomidine HCl 400 MCG/100 ML MLS IVC SCH ×2 (09:17→22:22)
[2019-12-15 09:33] LABS: Basophils % 0.2 %; Eosinophils % 0.1 %; Hematocrit 36.2 % (37.5-50.1); Hemoglobin 11.6 g/dL (12.9-16.9); Immature Granulocytes % 0.8 % (0-4); Lymphocytes # 0.9 K/mcL (0.6-4.6); Lymphocytes % 6.6 %; Mean Corpuscular Hemoglobin 34.3 pg (28.0-33.3); Mean Corpuscular Volume 107.1 fL (83.0-100.0); Mean Platelet Volume 11.4 fL (9.4-12.4); Monocytes # 1.3 K/mcL (0.0-1.3); Monocytes % 9.8 %; Platelet Count 217 K/mcL (140-400); Red Blood Count 3.38 M/mcL (4.19-5.50); Red Cell Distribution Width 13.3 % (11.5-14.5); Segmented Neutrophils % 82.5 %; White Blood Count 13.3 K/mcL (4.3-11.1)
[2019-12-15] MEDS ORDERED: *HR* Etomidate 20 MG/10 ML AMPUL IVP ONE (09:48)
[2019-12-15] MEDS ORDERED: *HR* Rocuronium Bromide 100 MG/10 ML VIAL IVC ONE (09:48)
[2019-12-15 09:54] LABS: Platelet Estimate Normal (Normal); Reactive Lymphocytes Present (Not Present)
[2019-12-15] MEDS: Cisatracurium 200 MG in 0.9 % Sodium Chloride 180 ML IVC SCH ×2 (10:31→19:45)
[2019-12-15] MEDS: FentaNYL (PF) 1,000 MCG in 0.9 % Sodium Chloride 80 ML IVC SCH ×2 (12:00→23:29)
[2019-12-15 14:11] LABS: ABG Base Excess 0 mEq/L (-2 to 3); ABG HCO3 29 mEq/L (21-27); ABG Oxygen Saturation 95 % (95-98); ABG PCO2 62 mmHg (35-45); ABG PH 7.28 pH Units (7.32-7.45); ABG PO2 88 mmHg (85-104); ABG TCO2 31 mEq/L (20-26); Blood Gas Modality ASSIST CONTROL; Blood Gas VT 500 cc
[2019-12-15 15:17] LABS: Bilirubin,Urine Negative (Negative); Blood,Urine Negative (Negative); Clarity,Urine Clear (Clear); Color,Urine Yellow (Yellow); Glucose,Urine (UA) Normal (Normal); Ketones,Urine 40 mg/dL (Negative); Leukocyte Esterase,Urine Negative (Negative); Nitrite,Urine Negative (Negative); Protein,Urine Negative (Neg-Trace); Specific Gravity,Urine 1.021 (1.010-1.025); Urobilinogen,Urine Normal (Normal)
[2019-12-15] MEDS: Azithromycin 500 MG in 0.9 % Sodium Chloride 250 ML IVPB SCH (17:02)
[2019-12-15] MEDS: Thiamine (B-1) 100 MG, Folic Acid 1 MG, MVI, adult with vitamin K 10 ML in 0.9 % Sodi... IVPB SCH (18:39)
[2019-12-15] MEDS ORDERED: Albuterol 2.5 MG/3 ML NEBULIZER IH PRN (23:58)
[2019-12-16] MEDS: Artificial Tears SOLN 15 ML BOTTLE BOTH EYES SCH ×6 (00:08→19:48)
[2019-12-16] MEDS: Ipratropium/Albuterol Neb 3 ML IH SCH ×6 (03:02→23:53)
[2019-12-16 04:09] LABS: ABG Base Excess 2 mEq/L (-2 to 3); ABG HCO3 26 mEq/L (21-27); ABG Oxygen Saturation 93 % (95-98); ABG PCO2 37 mmHg (35-45); ABG PH 7.45 pH Units (7.32-7.45); ABG PO2 63 mmHg (85-104); ABG TCO2 27 mEq/L (20-26); Blood Gas Modality VC; Blood Gas VT 500 cc
[2019-12-16] MEDS: Cisatracurium 200 MG in 0.9 % Sodium Chloride 180 ML IVC SCH ×2 (04:56→14:20)
[2019-12-16] MEDS: FentaNYL (PF) 1,000 MCG in 0.9 % Sodium Chloride 80 ML IVC SCH ×4 (05:47→21:11)
[2019-12-16] MEDS: *HR* Heparin 5,000 UNIT/ML VIAL SQ SCH ×2 (06:08→21:57)
[2019-12-16 06:22] LABS: BUN/Creatinine Ratio 13 (6-26); Blood Urea Nitrogen 6 mg/dL (6-20); Calcium 8.5 mg/dL (8.6-10.3); Carbon Dioxide 25 mEq/L (23-29); Chloride 100 mEq/L (98-107); Glucose 149 mg/dL (70-105); Osmolality,Calculated 282 (280-300); Sodium 136 mEq/L (136-145); eGFR For African Americans > 60 (> 60); eGFR For Non-African Americans > 60 (> 60)
[2019-12-16 07:52] LABS: Hematocrit 35.6 % (37.5-50.1); Hemoglobin 12.1 g/dL (12.9-16.9); Mean Corpuscular Hemoglobin 33.9 pg (28.0-33.3); Mean Corpuscular Volume 99.7 fL (83.0-100.0); Mean Platelet Volume 11.1 fL (9.4-12.4); Platelet Count 230 K/mcL (140-400); Red Blood Count 3.57 M/mcL (4.19-5.50); Red Cell Distribution Width 13.2 % (11.5-14.5); White Blood Count 12.9 K/mcL (4.3-11.1)
[2019-12-16] MEDS: Cefepime HCl 2,000 MG in 0.9 % Sodium Chloride Mini Bag 100 ML IVPB SCH ×2 (08:00→16:12)
[2019-12-16] MEDS: Dexamethasone 4 MG/ML VIAL IVP SCH ×2 (08:00→16:12)
[2019-12-16] MEDS: Chlorhexidine Rinse 15 ML MOUTHWASH MM SCH ×2 (08:00→19:47)
[2019-12-16] MEDS: Pantoprazole 40 MG VIAL IVP SCH (08:01)
[2019-12-16] MEDS: Budesonide/Formoterol 160/4.5 1 PUFF INH IH SCH ×2 (08:12→19:59)
[2019-12-16 08:44] LABS: Lymphocytes # 2.3 K/mcL (0.6-4.6); Neutrophils # 9.6 K/mcL (1.6-8.9)
[2019-12-16 08:45] LABS: Platelet Estimate Normal (Normal); Reactive Lymphocytes Present (Not Present)
[2019-12-16] MEDS: Dexmedetomidine HCl 400 MCG/100 ML MLS IVC SCH ×2 (10:37→20:13)
[2019-12-16] MEDS ORDERED: Furosemide 20 MG/2 ML VIAL IVP ONE (10:42)
[2019-12-16] MEDS: *HR* LORazepam 2 MG/ML VIAL IVP PRN ×2 (10:47→19:46)
[2019-12-16] MEDS: Azithromycin 500 MG in 0.9 % Sodium Chloride 250 ML IVPB SCH (16:12)
[2019-12-16] MEDS: Thiamine (B-1) 100 MG, Folic Acid 1 MG, MVI, adult with vitamin K 10 ML in 0.9 % Sodi... IVPB SCH (17:13)
[2019-12-16] MEDS ORDERED: *HR* LORazepam 2 MG/ML VIAL IVP ONE (22:44)
[2019-12-16] MEDS ORDERED: *HR* Labetalol 20 MG/4 ML SYRINGE IVP ONE (23:21)
[2019-12-17] MEDS: Dexamethasone 4 MG/ML VIAL IVP SCH ×2 (00:44→08:56)
[2019-12-17] MEDS: Cefepime HCl 2,000 MG in 0.9 % Sodium Chloride Mini Bag 100 ML IVPB SCH ×4 (00:44→23:37)
[2019-12-17] MEDS: Cisatracurium 200 MG in 0.9 % Sodium Chloride 180 ML IVC SCH (00:54)
[2019-12-17] MEDS: FentaNYL (PF) 1,000 MCG in 0.9 % Sodium Chloride 80 ML IVC SCH ×3 (02:07→12:07)
[2019-12-17] MEDS: Dexmedetomidine HCl 400 MCG/100 ML MLS IVC SCH ×4 (02:10→23:42)
[2019-12-17] MEDS: Ipratropium/Albuterol Neb 3 ML IH SCH ×6 (03:31→23:25)
[2019-12-17] MEDS: Artificial Tears SOLN 15 ML BOTTLE BOTH EYES SCH ×7 (03:43→23:37)
[2019-12-17] MEDS ORDERED: *HR* Metoprolol 5 MG/5 ML VIAL IVP ONE (03:58)
[2019-12-17 04:33] LABS: Basophils # 0.1 K/mcL (0.0-0.2); Basophils % 0.5 %; Hematocrit 38.9 % (37.5-50.1); Hemoglobin 13.6 g/dL (12.9-16.9); Immature Granulocytes % 2.9 % (0-4); Lymphocytes # 1.5 K/mcL (0.6-4.6); Lymphocytes % 10.8 %; Mean Corpuscular Volume 97.3 fL (83.0-100.0); Mean Platelet Volume 11.5 fL (9.4-12.4); Monocytes % 7.3 %; Neutrophils # 11.2 K/mcL (1.6-8.9); Platelet Count 269 K/mcL (140-400); Red Cell Distribution Width 13.1 % (11.5-14.5); Segmented Neutrophils % 78.5 %; White Blood Count 14.2 K/mcL (4.3-11.1)
[2019-12-17 04:54] LABS: BUN/Creatinine Ratio 21 (6-26); Blood Urea Nitrogen 9 mg/dL (6-20); Calcium 8.3 mg/dL (8.6-10.3); Carbon Dioxide 23 mEq/L (23-29); Chloride 100 mEq/L (98-107); Glucose 136 mg/dL (70-105); Osmolality,Calculated 277 (280-300); Potassium 3.8 mEq/L (3.5-5.1); Sodium 133 mEq/L (136-145); eGFR For African Americans > 60 (> 60); eGFR For Non-African Americans > 60 (> 60)
[2019-12-17 05:00] LABS: Reactive Lymphocytes Present (Not Present)
[2019-12-17 05:01] LABS: Platelet Estimate Normal (Normal)
[2019-12-17 06:12] LABS: ABG Base Excess 4 mEq/L (-2 to 3); ABG HCO3 27 mEq/L (21-27); ABG Oxygen Saturation 97 % (95-98); ABG PCO2 32 mmHg (35-45); ABG PH 7.53 pH Units (7.32-7.45); ABG PO2 82 mmHg (85-104); ABG TCO2 28 mEq/L (20-26); Blood Gas Modality AF; Blood Gas VT 500 cc
[2019-12-17] MEDS: *HR* Heparin 5,000 UNIT/ML VIAL SQ SCH ×3 (06:16→20:25)
[2019-12-17] MEDS: Budesonide/Formoterol 160/4.5 1 PUFF INH IH SCH ×2 (08:02→19:42)
[2019-12-17] MEDS ORDERED: Aminoglycoside Consult 1 EACH MC ONE (08:42)
[2019-12-17] MEDS: Chlorhexidine Rinse 15 ML MOUTHWASH MM SCH ×2 (08:56→20:25)
[2019-12-17] MEDS: Pantoprazole 40 MG VIAL IVP SCH (09:22)
[2019-12-17] MEDS: Furosemide 20 MG/2 ML VIAL IVP SCH ×2 (11:45→18:19)
[2019-12-17] MEDS ORDERED: Haloperidol Lactate 5 MG/ML VIAL IVP PRN (13:37)
[2019-12-17] MEDS: *HR* Labetalol 20 MG/4 ML SYRINGE IVP SCH ×2 (17:13→23:38)
[2019-12-17] MEDS: MethylPREDNISolone 40 MG/ML VIAL IVP SCH (18:18)
[2019-12-18] MEDS: Ipratropium/Albuterol Neb 3 ML IH SCH ×6 (03:31→23:51)
[2019-12-18] MEDS: Artificial Tears SOLN 15 ML BOTTLE BOTH EYES SCH ×6 (03:59→23:13)
[2019-12-18] MEDS: Dexmedetomidine HCl 400 MCG/100 ML MLS IVC SCH ×3 (04:17→19:34)
[2019-12-18 04:42] LABS: ABG Base Excess 6 mEq/L (-2 to 3); ABG HCO3 32 mEq/L (21-27); ABG Oxygen Saturation 94 % (95-98); ABG PCO2 52 mmHg (35-45); ABG PO2 72 mmHg (85-104); ABG TCO2 34 mEq/L (20-26); Blood Gas Modality ASSIST CONTROL; Blood Gas VT 400 cc
[2019-12-18] MEDS: *HR* Heparin 5,000 UNIT/ML VIAL SQ SCH ×3 (05:10→21:25)
[2019-12-18] MEDS: MethylPREDNISolone 40 MG/ML VIAL IVP SCH ×2 (05:10→17:11)
[2019-12-18 05:48] LABS: Basophils # 0.1 K/mcL (0.0-0.2); Basophils % 0.7 %; Hematocrit 40.1 % (37.5-50.1); Hemoglobin 13.3 g/dL (12.9-16.9); Immature Granulocytes % 3.9 % (0-4); Lymphocytes # 2.6 K/mcL (0.6-4.6); Mean Corpuscular HGB Conc 33.2 g/dL (31.6-35.5); Mean Corpuscular Hemoglobin 33.9 pg (28.0-33.3); Mean Corpuscular Volume 102.3 fL (83.0-100.0); Mean Platelet Volume 11.1 fL (9.4-12.4); Monocytes # 1.3 K/mcL (0.0-1.3); Monocytes % 7.8 %; Neutrophils # 11.7 K/mcL (1.6-8.9); Platelet Count 302 K/mcL (140-400); Red Blood Count 3.92 M/mcL (4.19-5.50); Red Cell Distribution Width 13.5 % (11.5-14.5); Segmented Neutrophils % 71.6 %; White Blood Count 16.3 K/mcL (4.3-11.1)
[2019-12-18 06:08] LABS: Alanine Aminotransferase 5 Units/L (7-52); Albumin/Globulin Ratio 1.1 (1.1-2.2); Alkaline Phosphatase 43 Units/L (34-104); Aspartate Amino Transferase 8 Units/L (13-39); BUN/Creatinine Ratio 30 (6-26); Bilirubin,Total 0.2 mg/dL (0.3-1.0); Blood Urea Nitrogen 12 mg/dL (6-20); Calcium 8.3 mg/dL (8.6-10.3); Carbon Dioxide 32 mEq/L (23-29); Chloride 99 mEq/L (98-107); Globulin 2.8 g/dL (2.4-3.5); Glucose 122 mg/dL (70-105); Magnesium 1.5 mg/dL (1.6-2.6); Osmolality,Calculated 285 (280-300); Potassium 3.7 mEq/L (3.5-5.1); Sodium 137 mEq/L (136-145); Total Protein 5.8 g/dL (6.4-8.9); eGFR For African Americans > 60 (> 60); eGFR For Non-African Americans > 60 (> 60)
[2019-12-18 06:18] LABS: Platelet Estimate Normal (Normal); Reactive Lymphocytes Present (Not Present)
[2019-12-18] MEDS: Budesonide/Formoterol 160/4.5 1 PUFF INH IH SCH ×2 (07:23→19:59)
[2019-12-18] MEDS: Chlorhexidine Rinse 15 ML MOUTHWASH MM SCH ×2 (08:47→19:32)
[2019-12-18] MEDS: Pantoprazole 40 MG VIAL IVP SCH (08:47)
[2019-12-18] MEDS: *HR* Labetalol 20 MG/4 ML SYRINGE IVP SCH ×2 (08:47→21:25)
[2019-12-18] MEDS: Furosemide 20 MG/2 ML VIAL IVP SCH ×2 (08:47→16:24)
[2019-12-18] MEDS: Cefepime HCl 2,000 MG in 0.9 % Sodium Chloride Mini Bag 100 ML IVPB SCH ×3 (08:48→23:12)
[2019-12-18] MEDS: Calcium Gluconate 1gm/50mL 1 GM/50 ML BAG IVPB SCH ×2 (12:22→12:43)
[2019-12-19] MEDS: Dexmedetomidine HCl 400 MCG/100 ML MLS IVC SCH ×3 (02:40→23:00)
[2019-12-19] MEDS: Ipratropium/Albuterol Neb 3 ML IH SCH ×6 (03:42→23:32)
[2019-12-19 05:09] LABS: ABG Base Excess 7 mEq/L (-2 to 3); ABG HCO3 35 mEq/L (21-27); ABG Oxygen Saturation 95 % (95-98); ABG PCO2 62 mmHg (35-45); ABG PH 7.36 pH Units (7.32-7.45); ABG PO2 81 mmHg (85-104); ABG TCO2 37 mEq/L (20-26); Blood Gas Modality ASSIST CONTROL; Blood Gas VT 400 cc
[2019-12-19] MEDS: *HR* Heparin 5,000 UNIT/ML VIAL SQ SCH ×3 (05:17→21:16)
[2019-12-19] MEDS: Artificial Tears SOLN 15 ML BOTTLE BOTH EYES SCH ×6 (05:17→23:29)
[2019-12-19] MEDS: MethylPREDNISolone 40 MG/ML VIAL IVP SCH ×2 (05:17→17:10)
[2019-12-19 05:42] LABS: Basophils # 0.1 K/mcL (0.0-0.2); Basophils % 0.9 %; Eosinophils % 0.2 %; Hemoglobin 13.4 g/dL (12.9-16.9); Immature Granulocytes % 3.4 % (0-4); Lymphocytes # 3.4 K/mcL (0.6-4.6); Lymphocytes % 22.4 %; Mean Corpuscular HGB Conc 32.7 g/dL (31.6-35.5); Mean Corpuscular Hemoglobin 33.8 pg (28.0-33.3); Mean Corpuscular Volume 103.3 fL (83.0-100.0); Monocytes # 1.3 K/mcL (0.0-1.3); Monocytes % 8.4 %; Neutrophils # 9.9 K/mcL (1.6-8.9); Platelet Count 330 K/mcL (140-400); Red Blood Count 3.97 M/mcL (4.19-5.50); Red Cell Distribution Width 13.7 % (11.5-14.5); Segmented Neutrophils % 64.7 %; White Blood Count 15.3 K/mcL (4.3-11.1)
[2019-12-19 06:18] LABS: BUN/Creatinine Ratio 33 (6-26); Blood Urea Nitrogen 13 mg/dL (6-20); Calcium 8.7 mg/dL (8.6-10.3); Carbon Dioxide 34 mEq/L (23-29); Chloride 97 mEq/L (98-107); Glucose 102 mg/dL (70-105); Magnesium 1.7 mg/dL (1.6-2.6); Osmolality,Calculated 288 (280-300); Phosphorous 3.2 mg/dL (2.7-4.5); Platelet Estimate Normal (Normal); Potassium 3.6 mEq/L (3.5-5.1); Sodium 139 mEq/L (136-145); eGFR For African Americans > 60 (> 60); eGFR For Non-African Americans > 60 (> 60)
[2019-12-19 06:19] LABS: Reactive Lymphocytes Present (Not Present)
[2019-12-19 06:22] LABS: Thyroid Stimulating Hormone 5.604 mcIU/mL (0.340-5.600)
[2019-12-19] MEDS: Budesonide/Formoterol 160/4.5 1 PUFF INH IH SCH ×2 (07:30→20:15)
[2019-12-19] MEDS: Chlorhexidine Rinse 15 ML MOUTHWASH MM SCH ×2 (08:09→21:15)
[2019-12-19] MEDS: Pantoprazole 40 MG VIAL IVP SCH (08:09)
[2019-12-19] MEDS: Furosemide 20 MG/2 ML VIAL IVP SCH ×2 (08:09→17:09)
[2019-12-19] MEDS: *HR* Labetalol 20 MG/4 ML SYRINGE IVP SCH ×2 (08:21→21:14)
[2019-12-19] MEDS: Cefepime HCl 2,000 MG in 0.9 % Sodium Chloride Mini Bag 100 ML IVPB SCH ×2 (09:28→15:20)
[2019-12-19] MEDS ORDERED: *HR* LORazepam 2 MG/ML VIAL IVP PRN ×3 (12:18)
[2019-12-19] MEDS ORDERED: *HR* Promethazine 25 MG/ML VIAL IVP PRN (12:18)
[2019-12-20] MEDS: Cefepime HCl 2,000 MG in 0.9 % Sodium Chloride Mini Bag 100 ML IVPB SCH ×2 (00:12→08:10)
[2019-12-20] MEDS: Ipratropium/Albuterol Neb 3 ML IH SCH ×6 (03:30→23:21)
[2019-12-20 04:33] LABS: ABG Base Excess 17 mEq/L (-2 to 3); ABG HCO3 43 mEq/L (21-27); ABG Oxygen Saturation 90 % (95-98); ABG PCO2 50 mmHg (35-45); ABG PH 7.54 pH Units (7.32-7.45); ABG PO2 52 mmHg (85-104); ABG TCO2 44 mEq/L (20-26)
[2019-12-20] MEDS: Dexmedetomidine HCl 400 MCG/100 ML MLS IVC SCH ×2 (04:52→17:26)
[2019-12-20] MEDS: *HR* Heparin 5,000 UNIT/ML VIAL SQ SCH ×2 (05:25→20:22)
[2019-12-20] MEDS: MethylPREDNISolone 40 MG/ML VIAL IVP SCH (05:25)
[2019-12-20] MEDS: Budesonide/Formoterol 160/4.5 1 PUFF INH IH SCH ×2 (07:33→20:32)
[2019-12-20 08:03] LABS: Hematocrit 45.9 % (37.5-50.1); Mean Corpuscular HGB Conc 33.8 g/dL (31.6-35.5); Mean Corpuscular Hemoglobin 34.2 pg (28.0-33.3); Mean Corpuscular Volume 101.3 fL (83.0-100.0); Mean Platelet Volume 10.4 fL (9.4-12.4); Platelet Count 318 K/mcL (140-400); Red Blood Count 4.53 M/mcL (4.19-5.50); White Blood Count 19.7 K/mcL (4.3-11.1)
[2019-12-20] MEDS: Furosemide 20 MG/2 ML VIAL IVP SCH ×2 (08:11→17:26)
[2019-12-20] MEDS: Pantoprazole 40 MG VIAL IVP SCH (08:11)
[2019-12-20] MEDS: *HR* Labetalol 20 MG/4 ML SYRINGE IVP SCH ×2 (08:11→20:21)
[2019-12-20 08:44] LABS: Hemoglobin 15.5 g/dL (12.9-16.9)
[2019-12-20] MEDS ORDERED: Vitamin B Complex/Vit C/Vit E 1 EACH TABLET PO SCH (09:00)
[2019-12-20] MEDS ORDERED: Thiamine (B-1) 100 MG TABLET PO SCH (09:00)
[2019-12-20] MEDS ORDERED: Folic Acid 1 MG TABLET PO SCH (09:00)
[2019-12-20] MEDS ORDERED: predniSONE 20 MG TABLET PO SCH (09:00)
[2019-12-20 09:22] LABS: Lymphocytes # 2.8 K/mcL (0.6-4.6); Monocytes # 1.6 K/mcL (0.0-1.3); Neutrophils # 15.4 K/mcL (1.6-8.9); Platelet Estimate Normal (Normal); Reactive Lymphocytes Present (Not Present)
[2019-12-20 09:25] LABS: BUN/Creatinine Ratio 27 (6-26); Blood Urea Nitrogen 12 mg/dL (6-20); Carbon Dioxide 29 mEq/L (23-29); Chloride 90 mEq/L (98-107); Glucose 93 mg/dL (70-105); Magnesium 1.2 mg/dL (1.6-2.6); Osmolality,Calculated 279 (280-300); Phosphorous 1.5 mg/dL (2.7-4.5); Potassium 3.1 mEq/L (3.5-5.1); Sodium 135 mEq/L (136-145); Thyroid Stimulating Hormone 3.553 mcIU/mL (0.340-5.600); eGFR For African Americans > 60 (> 60); eGFR For Non-African Americans > 60 (> 60)
[2019-12-20] MEDS ORDERED: *HR* LORazepam 2 MG/ML VIAL IVP PRN ×4 (14:57)
[2019-12-20] MEDS ORDERED: Albuterol 2.5 MG/3 ML NEBULIZER IH PRN (14:57)
[2019-12-20] MEDS ORDERED: Haloperidol Lactate 5 MG/ML VIAL IVP PRN (14:57)
[2019-12-20] MEDS ORDERED: *HR* Promethazine 25 MG/ML VIAL IVP PRN (14:57)
[2019-12-20] MEDS ORDERED: Naloxone 0.4 MG/ML INJ IVP PRN (14:57)
[2019-12-20] MEDS ORDERED: MethylPREDNISolone 40 MG/ML VIAL IVP ONE ×2 (18:00)
[2019-12-21] MEDS: Ipratropium/Albuterol Neb 3 ML IH SCH ×6 (03:25→23:06)
[2019-12-21 05:39] LABS: Basophils # 0.1 K/mcL (0.0-0.2); Basophils % 0.3 %; Eosinophils % 0.2 %; Hematocrit 45.5 % (37.5-50.1); Hemoglobin 15.8 g/dL (12.9-16.9); Immature Granulocytes % 1.5 % (0-4); Lymphocytes # 3.8 K/mcL (0.6-4.6); Lymphocytes % 18.1 %; Mean Corpuscular HGB Conc 34.7 g/dL (31.6-35.5); Mean Corpuscular Hemoglobin 33.8 pg (28.0-33.3); Mean Corpuscular Volume 97.2 fL (83.0-100.0); Mean Platelet Volume 10.8 fL (9.4-12.4); Monocytes # 1.9 K/mcL (0.0-1.3); Monocytes % 8.8 %; Platelet Count 444 K/mcL (140-400); Red Blood Count 4.68 M/mcL (4.19-5.50); Red Cell Distribution Width 13.1 % (11.5-14.5); Segmented Neutrophils % 71.1 %; White Blood Count 21.1 K/mcL (4.3-11.1)
[2019-12-21 05:50] LABS: BUN/Creatinine Ratio 31 (6-26); Blood Urea Nitrogen 13 mg/dL (6-20); Calcium 9.3 mg/dL (8.6-10.3); Carbon Dioxide 40 mEq/L (23-29); Chloride 86 mEq/L (98-107); Glucose 88 mg/dL (70-105); Magnesium 1.8 mg/dL (1.6-2.6); Osmolality,Calculated 280 (280-300); Phosphorous 2.9 mg/dL (2.7-4.5); Potassium 2.6 mEq/L (3.5-5.1); Sodium 135 mEq/L (136-145); eGFR For African Americans > 60 (> 60); eGFR For Non-African Americans > 60 (> 60)
[2019-12-21] MEDS ORDERED: Potassium Chloride 40 MEQ, Lidocaine 1% 2 ML in 0.9 % Sodium Chloride 500 ML IVPB ONE (06:05)
[2019-12-21 06:29] LABS: VBG HCO3 48 mEq/L (21-27); VBG PCO2 52 mmHg (41-51); VBG PH 7.57 pH Units (7.32-7.42); VBG PO2 60 mmHg (25-50)
[2019-12-21] MEDS: *HR* Heparin 5,000 UNIT/ML VIAL SQ SCH ×3 (06:33→21:03)
[2019-12-21] MEDS: Budesonide/Formoterol 160/4.5 1 PUFF INH IH SCH ×2 (07:45→20:12)
[2019-12-21] MEDS: Dexmedetomidine HCl 400 MCG/100 ML MLS IVC SCH (07:48)
[2019-12-21] MEDS: Furosemide 20 MG/2 ML VIAL IVP SCH (07:49)
[2019-12-21] MEDS: *HR* Labetalol 20 MG/4 ML SYRINGE IVP SCH (07:50)
[2019-12-21] MEDS ORDERED: Vitamin B Complex/Vit C/Vit E 1 EACH TABLET PO SCH (09:00)
[2019-12-21] MEDS ORDERED: Folic Acid 1 MG TABLET PO SCH (09:00)
[2019-12-21] MEDS ORDERED: Thiamine (B-1) 100 MG TABLET PO SCH (09:00)
[2019-12-21] MEDS ORDERED: predniSONE 20 MG TABLET PO SCH (09:00)
[2019-12-21] MEDS ORDERED: Cefuroxime PO 500 MG TABLET PO SCH (11:26)
[2019-12-21] MEDS ORDERED: Potassium Chloride Elixir 20 MEQ/15 ML UDC PO SCH (11:35)
[2019-12-21] MEDS ORDERED: Albuterol 2.5 MG/3 ML NEBULIZER AER PRN ×2 (12:00→13:10)
[2019-12-21] MEDS ORDERED: ALPRAZolam 1 MG TABLET PO PRN ×2 (12:00→13:10)
[2019-12-21] MEDS ORDERED: Albuterol 2.5 MG/3 ML NEBULIZER IH PRN (13:10)
[2019-12-21] MEDS ORDERED: *HR* LORazepam 2 MG/ML VIAL IVP PRN ×3 (13:10→20:11)
[2019-12-21] MEDS ORDERED: *HR* Promethazine 25 MG/ML VIAL IVP PRN (13:10)
[2019-12-21] MEDS: metroNIDAZOLE 500 MG TABLET PO SCH ×2 (14:23→21:02)
[2019-12-21] MEDS ORDERED: metroNIDAZOLE 500 MG TABLET PO SCH (15:00)
[2019-12-21] MEDS ORDERED: *HR* Labetalol 20 MG/4 ML SYRINGE IVP SCH (21:00)
[2019-12-21] MEDS ORDERED: Budesonide/Formoterol 160/4.5 1 PUFF INH IH SCH (21:00)
[2019-12-21] MEDS: Cefuroxime PO 500 MG TABLET PO SCH (21:02)
[2019-12-21] MEDS: *HR* LORazepam 2 MG/ML VIAL IVP PRN (21:03)
[2019-12-22] MEDS: Ipratropium/Albuterol Neb 3 ML IH SCH ×6 (04:11→23:55)
[2019-12-22] MEDS: *HR* Heparin 5,000 UNIT/ML VIAL SQ SCH ×3 (05:04→21:29)
[2019-12-22] MEDS: *HR* LORazepam 2 MG/ML VIAL IVP PRN ×3 (05:04→16:03)
[2019-12-22 05:55] LABS: Basophils # 0.1 K/mcL (0.0-0.2); Basophils % 0.3 %; Eosinophils # 0.1 K/mcL (0.0-0.6); Eosinophils % 0.7 %; Hematocrit 40.4 % (37.5-50.1); Hemoglobin 14.4 g/dL (12.9-16.9); Immature Granulocytes % 1.2 % (0-4); Lymphocytes # 3.7 K/mcL (0.6-4.6); Lymphocytes % 20.6 %; Mean Corpuscular HGB Conc 35.6 g/dL (31.6-35.5); Mean Corpuscular Hemoglobin 33.6 pg (28.0-33.3); Mean Corpuscular Volume 94.4 fL (83.0-100.0); Monocytes # 1.7 K/mcL (0.0-1.3); Monocytes % 9.6 %; Neutrophils # 12.1 K/mcL (1.6-8.9); Platelet Count 431 K/mcL (140-400); Red Blood Count 4.28 M/mcL (4.19-5.50); Red Cell Distribution Width 13.3 % (11.5-14.5); Segmented Neutrophils % 67.6 %; White Blood Count 17.8 K/mcL (4.3-11.1)
[2019-12-22 06:41] LABS: BUN/Creatinine Ratio 28 (6-26); Blood Urea Nitrogen 13 mg/dL (6-20); Calcium 8.9 mg/dL (8.6-10.3); Carbon Dioxide 35 mEq/L (23-29); Chloride 87 mEq/L (98-107); Glucose 86 mg/dL (70-105); Magnesium 1.6 mg/dL (1.6-2.6); Osmolality,Calculated 271 (280-300); Potassium 3.2 mEq/L (3.5-5.1); Sodium 131 mEq/L (136-145); eGFR For African Americans > 60 (> 60); eGFR For Non-African Americans > 60 (> 60)
[2019-12-22] MEDS: Budesonide/Formoterol 160/4.5 1 PUFF INH IH SCH ×2 (07:21→19:54)
[2019-12-22] MEDS: Thiamine (B-1) 100 MG TABLET PO SCH (08:12)
[2019-12-22] MEDS: Cefuroxime PO 500 MG TABLET PO SCH ×2 (08:12→21:29)
[2019-12-22] MEDS: Lisinopril 20 MG TABLET PO SCH (08:12)
[2019-12-22] MEDS: metroNIDAZOLE 500 MG TABLET PO SCH ×3 (08:12→21:29)
[2019-12-22] MEDS: Loratadine 10 MG TABLET PO SCH (08:12)
[2019-12-22] MEDS: Folic Acid 1 MG TABLET PO SCH (08:12)
[2019-12-22] MEDS: predniSONE 20 MG TABLET PO SCH (08:32)
[2019-12-22] MEDS ORDERED: Cholecalciferol (D-3) 1,000 UNIT (25MCG) TABLET PO SCH (09:00)
[2019-12-22] MEDS ORDERED: Lisinopril 20 MG TABLET PO SCH (09:00)
[2019-12-22] MEDS ORDERED: Loratadine 10 MG TABLET PO SCH (09:00)
[2019-12-23] MEDS: Ipratropium/Albuterol Neb 3 ML IH SCH ×5 (03:22→19:28)
[2019-12-23] MEDS: *HR* Heparin 5,000 UNIT/ML VIAL SQ SCH ×3 (05:35→20:42)
[2019-12-23 05:51] LABS: Basophils # 0.1 K/mcL (0.0-0.2); Basophils % 0.4 %; Eosinophils # 0.1 K/mcL (0.0-0.6); Eosinophils % 0.8 %; Hematocrit 40.2 % (37.5-50.1); Hemoglobin 13.8 g/dL (12.9-16.9); Immature Granulocytes % 1.2 % (0-4); Lymphocytes # 3.8 K/mcL (0.6-4.6); Lymphocytes % 24.2 %; Mean Corpuscular HGB Conc 34.3 g/dL (31.6-35.5); Mean Corpuscular Hemoglobin 33.7 pg (28.0-33.3); Mean Platelet Volume 10.7 fL (9.4-12.4); Monocytes # 1.9 K/mcL (0.0-1.3); Monocytes % 11.8 %; Neutrophils # 9.6 K/mcL (1.6-8.9); Platelet Count 389 K/mcL (140-400); Red Cell Distribution Width 13.2 % (11.5-14.5); Segmented Neutrophils % 61.6 %; White Blood Count 15.6 K/mcL (4.3-11.1)
[2019-12-23 06:04] LABS: BUN/Creatinine Ratio 22 (6-26); Blood Urea Nitrogen 10 mg/dL (6-20); Carbon Dioxide 33 mEq/L (23-29); Chloride 91 mEq/L (98-107); Glucose 100 mg/dL (70-105); Magnesium 1.5 mg/dL (1.6-2.6); Osmolality,Calculated 273 (280-300); Potassium 3.7 mEq/L (3.5-5.1); Sodium 132 mEq/L (136-145); eGFR For African Americans > 60 (> 60); eGFR For Non-African Americans > 60 (> 60)
[2019-12-23] MEDS: Budesonide/Formoterol 160/4.5 1 PUFF INH IH SCH ×2 (07:14→19:29)
[2019-12-23] MEDS: metroNIDAZOLE 500 MG TABLET PO SCH ×2 (08:09→13:50)
[2019-12-23] MEDS: Thiamine (B-1) 100 MG TABLET PO SCH (08:10)
[2019-12-23] MEDS: Folic Acid 1 MG TABLET PO SCH (08:10)
[2019-12-23] MEDS: Lisinopril 20 MG TABLET PO SCH (08:10)
[2019-12-23] MEDS: Cefuroxime PO 500 MG TABLET PO SCH (08:10)
[2019-12-23] MEDS: predniSONE 20 MG TABLET PO SCH (08:10)
[2019-12-23] MEDS: Loratadine 10 MG TABLET PO SCH (08:11)
[2019-12-23] MEDS ORDERED: Ipratropium/Albuterol Neb 3 ML IH PRN (13:41)
[2019-12-24] MEDS: Ipratropium/Albuterol Neb 3 ML IH SCH ×5 (00:02→15:30)
[2019-12-24] MEDS: *HR* Heparin 5,000 UNIT/ML VIAL SQ SCH ×2 (06:20→15:52)
[2019-12-24] MEDS: Budesonide/Formoterol 160/4.5 1 PUFF INH IH SCH (07:12)
[2019-12-24 07:34] LABS: Basophils # 0.1 K/mcL (0.0-0.2); Basophils % 0.4 %; Eosinophils # 0.1 K/mcL (0.0-0.6); Eosinophils % 0.6 %; Hematocrit 41.6 % (37.5-50.1); Hemoglobin 14.6 g/dL (12.9-16.9); Immature Granulocytes % 0.9 % (0-4); Lymphocytes # 2.4 K/mcL (0.6-4.6); Mean Corpuscular HGB Conc 35.1 g/dL (31.6-35.5); Mean Corpuscular Hemoglobin 33.1 pg (28.0-33.3); Mean Corpuscular Volume 94.3 fL (83.0-100.0); Mean Platelet Volume 11.1 fL (9.4-12.4); Monocytes # 1.6 K/mcL (0.0-1.3); Monocytes % 10.6 %; Neutrophils # 10.7 K/mcL (1.6-8.9); Platelet Count 424 K/mcL (140-400); Red Blood Count 4.41 M/mcL (4.19-5.50); Red Cell Distribution Width 13.3 % (11.5-14.5); Segmented Neutrophils % 71.5 %
[2019-12-24 07:48] LABS: BUN/Creatinine Ratio 23 (6-26); Blood Urea Nitrogen 11 mg/dL (6-20); Calcium 9.3 mg/dL (8.6-10.3); Carbon Dioxide 30 mEq/L (23-29); Chloride 93 mEq/L (98-107); Glucose 104 mg/dL (70-105); Magnesium 1.6 mg/dL (1.6-2.6); Osmolality,Calculated 276 (280-300); Potassium 3.6 mEq/L (3.5-5.1); Sodium 133 mEq/L (136-145); eGFR For African Americans > 60 (> 60); eGFR For Non-African Americans > 60 (> 60)
[2019-12-24] MEDS: Thiamine (B-1) 100 MG TABLET PO SCH (08:13)
[2019-12-24] MEDS: Folic Acid 1 MG TABLET PO SCH (08:14)
[2019-12-24] MEDS: Loratadine 10 MG TABLET PO SCH (08:14)
[2019-12-24] MEDS: Lisinopril 20 MG TABLET PO SCH (08:14)
[2019-12-24] MEDS: predniSONE 20 MG TABLET PO SCH (08:14)
[2019-12-24 16:38] VITALS: BP 161/94
== END 2019-12-24 18:03 | disposition home or self-care (01) | DRG 951 ==
LOC: ICNU 15:20 → SUATTDRO 15:20 → ICNU 12-17 18:54 → 2ANU 12-21 17:47
PROVIDERS: ADMIT Internal Medicine Cardiovascular Disease; ATTEND Internal Medicine